=== PATIENT | male | born 1950 | race Caucasian/White ===

== ENCOUNTER 2018-02-01 05:35 | Day surgery (SDC) | payer MEDICARE ==
[~2018-02-01] VITALS: Ht 185.4 cm; Wt 86.0 kg
[2018-02-01] MEDS ORDERED: TOPROL XL100 MG PO (06:00)
[2018-02-01] MEDS ORDERED: COUMADIN 6MG6 MG/TAB PO (06:02)
[2018-02-01] MEDS ORDERED: COUMADIN 2MG2 MG/TAB PO (06:02)
[2018-02-01 06:03] VITALS: BP 132/88; PULSE 79; TEMP 98.1
[2018-02-01] MEDS ORDERED: PRINIVIL5 MG PO (06:03)
[2018-02-01] MEDS ORDERED: LOVENOX 8080 MG/0.8 SQ (06:03)
[2018-02-01] MEDS ORDERED: PERCOCET 325 MG1 TA2 PO (07:03)
[2018-02-01 08:40] VITALS: BP 127/93; PULSE 82; TEMP 97.9
[2018-02-01] MEDS ORDERED: COLACE 100100 MG/CAP PO (08:53)
[2018-02-01] MEDS ORDERED: ZOFRAN 4MG T4 MG/TAB PO (08:53)
[2018-02-01 08:55] VITALS: BP 130/79; PULSE 73
[2018-02-01 09:10] VITALS: BP 125/59; PULSE 76
[2018-02-01 09:55] VITALS: BP 128/80; PULSE 72
[2018-02-01 10:25] VITALS: BP 135/86; PULSE 84
== END 2018-02-01 11:45 | disposition home or self-care (01) ==
LOC: SDCO 05:35
DX: M23.221 Derangement of posterior horn of medial meniscus due to old tear or injury, right knee (principal); M24.10 Other articular cartilage disorders, unspecified site; I48.91 Unspecified atrial fibrillation; I10 Essential (primary) hypertension; F17.220 Nicotine dependence, chewing tobacco, uncomplicated; Z79.01 Long term (current) use of anticoagulants; Z82.61 Family history of arthritis
CPT/HCPCS: J0690; J1100; J1170; J2405; J2704; J7120